=== PATIENT | female | born 1990 | race Caucasian/White ===

== ENCOUNTER 2017-06-05 14:30 | Inpatient (IN) ==
[2017-06-05 14:59] LABS: Basophils % 0.2 %; Eosinophils # 0.2 K/mcL (0.0-0.6); Eosinophils % 1.2 %; Hematocrit 40.5 % (35.3-44.9); Hemoglobin 13.1 g/dL (11.5-15.4); Immature Granulocytes % 0.5 % (0-4); Lymphocytes # 2.3 K/mcL (0.6-4.6); Mean Corpuscular HGB Conc 32.3 g/dL (31.6-35.5); Mean Corpuscular Hemoglobin 28.5 pg (28.0-33.3); Mean Corpuscular Volume 88.2 fL (83.0-100.0); Monocytes # 1.1 K/mcL (0.0-1.3); Monocytes % 8.2 %; Neutrophils # 9.3 K/mcL (1.6-8.9); Platelet Count 222 K/mcL (140-400); Red Blood Count 4.59 M/mcL (3.82-4.97); Red Cell Distribution Width 13.7 % (11.5-14.5); Segmented Neutrophils % 71.9 %
[2017-06-05 15:08] LABS: Creatinine,Urine 26 mg/dL
[2017-06-05 15:11] LABS: Protein/Creatinine Ratio,Urine < 0.27 mg/mg (0-0.20)
[2017-06-05 15:15] LABS: Alanine Aminotransferase 10 Units/L (0-55); Aspartate Amino Transferase 16 Units/L (5-34); BUN/Creatinine Ratio 8 (6-26); Blood Urea Nitrogen 6 mg/dL (7-20); Lactate Dehydrogenase 182 Units/L (159-327); Uric Acid 5.2 mg/dL (2.6-6.0); eGFR For African Americans > 60 (> 60); eGFR For Non-African Americans > 60 (> 60)
[2017-06-05] MEDS ORDERED: Famotidine 20 MG/2 ML VIAL IVP PRN (15:45)
[2017-06-05] MEDS ORDERED: Ondansetron 4 MG/2 ML VIAL IVP PRN (15:45)
[2017-06-05] MEDS ORDERED: Naloxone 0.4 MG/ML INJ IVP PRN (15:45)
[2017-06-05] MEDS ORDERED: miSOPROStol 100 MCG TABLET PO STA (15:47)
--- NOTE | 2017-06-05 15:55 | OB/GYN History & Physical ---
Date of Encounter: 06/05/17 Time of Encounter: 15:47 Assessment and Plan (1) PIH ( induced hypertension), antepartum Current visit: Yes Status: Acute induction of labor po cytotec nubain prn epidural if desired anticipate vaginal delivery (2) 37 weeks gestation of Current visit: Yes Status: Acute (3) Prior complicated by PIH, antepartum Current visit: Yes Status: Acute Qualifiers: Trimester: third trimester Qualified Code(s): O09.893 - Supervision of other high risk pregnancies, third trimester History of Present Illness Chief complaint: PIH eval HPI: Ms. Mary is a 26 year old female at 37.5 weeks gestation sent over from the OB office for PIH evaluation. She had 2 elevated BP in the OB office. Her protein/creatinine ratio is <0.27. The remainder of her PIH labs were normal. Her BP has normalized after lying down for approximately 45 minutes. She was induced at 37 weeks with her previous due to PIH. The case was discussed with Dr. Gonzalez, who stated to proceed with induction. Denies vaginal bleeding, loss of fluid, blurred vision, dizziness, headache, diarrhea, constipation, emesis. Good movement. Has had some nausea associate with GERD this . Labs: negative: GBS, Hep B, HIV, gonorrhea, chlamydia, syphilis, trichomonas, gardnerella, ana paula nonimmune: rubella immune: VZV Past Med Surg Social Fam HX - Past Medical History Medical history: other Psychiatric history: no psych history - Past Surgical History Surgical History: no surgical history - Social History Smoking Status: Never smoker Smokeless Tobacco Status: No Alcohol use: none Drug use: none - Family History Mother Living Status: Still Living Hx Family Cardiac Disorders: Yes (hypertension) Hx Family Respiratory Disorders: No Hx Family Cancer: No Hx Family GI Disorders: No Hx Family Genitourinary Disorders: No Hx Family Endocrine Disorder: No Hx Family Musculoskeletal Disorders: No Hx Family Neuromuscular Disorders: No Hx Family Neurologic Disorders: No Hx Family HEENT Disorders: No Hx Family Autoimmune Disorders: No Hx Family Reproductive Disorders: No Hx Family Psychosocial Disorders: No Hx Family Medical Disorders: Yes (brain anurysm) Obstetrical History - Pregnancies : 3 Para: 1 Term: 0 : 1 Ab's: 1 Livin Medications and Allergies Docusate [Colace] 100 mg PO BID 06/05/17 [History] Glycopyrrolate [Robinul] 2 mg PO BID 06/05/17 [History] Vit Calc,Iron,Folic [ Vitamins] 1 tab PO DAILY 06/05/17 [ History] Allergies No Known Allergies Allergy (Verified 06/05/17 14:42) Review of System OB - Constitutional Constitutional ROS IM: as per HPI Exam - Constitutional Constitutional: well developed, well nourished, no acute distress - HEENT HEENT: Normocephaly, Mucus Membranes Moist - Neck Neck exam: normal inspection - Lungs Respiratory exam: CTAB - Cardiovascular Cardiovascular exam: RRR, +S1, +S2 - Breasts Breast: bilateral: normal - Abdomen Abdomen: Present: bowel sounds normal, gravid, non tender - Extremities Extremities exam: pedal edema (1+) Results Result Diagrams: 06/05/17 14:45 06/05/17 14:45 Abnormal lab results WBC 13.0 K/mcL (4.3-11.1) H 06/05/17 14:45 Neutrophils # 9.3 K/mcL (1.6-8.9) H 06/05/17 14:45 BUN 6 mg/dL (7-20) L 06/05/17 14:45 Protein/Creatinin Ratio < 0.27 mg/mg (0-0.20) H 06/05/17 14:45 All other labs normal. - VTE Reasons for not Prescribing Prophylaxis: Treatment not Indicated - Low risk for VTE
[2017-06-05] MEDS: Ringers Solution, Lactated 1,000 ML IVC SCH (16:16)
--- NOTE | 2017-06-05 17:53 | Anesthesia Evaluation PreOp ---
Date of Encounter: 06/05/17 Time of Encounter: 17:51 - Past History Planned Operation: b[facility] Cardiac History: HTN (PIH) Pulmonary History: Denies Any Significant HX REAL ESTATE REP History: Denies Any Significant HX Other Medical History: GERD Anesthesia History: No Prior Anesthetic Complications, Past Anesthesia (Breast bx, BISMARK) : Yes Test: Positive Alcohol Use: none Drug use: none Medications and Allergies Docusate [Colace] 100 mg PO BID 06/05/17 [History] Glycopyrrolate [Robinul] 2 mg PO BID 06/05/17 [History] Vit Calc,Iron,Folic [ Vitamins] 1 tab PO DAILY 06/05/17 [ History] Allergies No Known Allergies Allergy (Verified 06/05/17 14:42) - Meds/Allergy Pre-op Review Medications Reviewed: Yes Allergies Reviewed: Yes Beta Blockers on Current Med List: No Anesthesia Results - Labs 06/05/17 14:45 06/05/17 14:45 Anesthesia Exam 135/90 77 16 FHT 133 Height: 5'5" Weight: 96 kg NPO (# of Hours): 2 Pain Scale: 1 Pain Scale Used: Numeric (1 - 10) - HEENT Pupil (Motor): Pupils equal Mallampati: II Teeth: Normal Oral Opening: Greater than 3 - REAL ESTATE REP LOC: Oriented REAL ESTATE REP Motor: Normal RUE, Normal LUE, Normal RLE, Normal LLE, Normal Face REAL ESTATE REP Sensory: Normal: RUE, LUE, RLE, LLE, Face - Cardiac Rhythm: Regular Murmur: None - Pulmonary Breath Sounds: bilateral Clear Respiratory Effort: Symmetrical Anesthesia Assess/Plan ASA Score: 2 Modified Colby Scale for Level of Consciousness: Cooperative, oriented, and tranquil Anesthetic Plan: Regional Autologous Blood: No Monitoring Plan: Standard Monitors Recovery Plan: Other (Risks discussed, questions answered, consented)
--- NOTE | 2017-06-05 19:25 | OB Labor Progress Note ---
Date of Encounter: 06/05/17 Time of Encounter: 19:23 Labor Progress Note - Subjective Subjective: Patient resting in bed. Discussed POC with patient. Patient denies any questions or concerns. - Cervix Cervix: 4/80/-1 - Heart Tones Heart Tones: 135 bpm moderate variability +15x15 accels no decels noted. - [place]: 2-3 min apart - Interventions Interventions: SVE, AROM moderate amount of clear fluid. Patient tolerated well. - Plan Plan: Continue labor management
[2017-06-05] MEDS ORDERED: Famotidine 20 MG/2 ML VIAL IVP ONE (20:03)
--- NOTE | 2017-06-05 21:12 | OB Labor Progress Note ---
Date of Encounter: 06/05/17 Time of Encounter: 21:10 Labor Progress Note - Subjective Subjective: Patient doing well. Discussed POC with patient. Patient denies any questions or concerns. - Cervix Cervix: 4/80/-1 - Heart Tones Heart Tones: 135 bpm moderate variability +15x15 accels variable noted. - [place]: 2-4 min apart - Interventions Interventions: SVE - Plan Plan: Will start pitocin for effective labor pattern.
[2017-06-05] MEDS ORDERED: Oxytocin 20 units/ LR 1000 mL 20 UNIT/1,000 ML BAG IVC SCH (21:30)
[2017-06-05] MEDS ORDERED: *HR* FentaNYL (PF) 100 MCG/2 ML VIAL EP ONE (22:41)
[2017-06-05] MEDS ORDERED: *HR* Ropivacaine/PF 0.2% 10 ML AMPUL EP ONE (22:43)
[2017-06-05] MEDS ORDERED: Epidural Premix (fent/bupiv) 110 ML EP SCH (22:45)
[2017-06-05] MEDS ORDERED: *HR* Ropivacaine/PF 0.2% 10 ML AMPUL ONE (22:47)
[2017-06-05] MEDS ORDERED: *HR* FentaNYL (PF) 100 MCG/2 ML VIAL ONE (22:47)
[2017-06-05] MEDS ORDERED: Epidural Premix (fent/bupiv) 110 ML EP ONE (22:47)
--- NOTE | 2017-06-05 23:59 | OB Labor Progress Note ---
Date of Encounter: 06/05/17 Time of Encounter: 23:57 Labor Progress Note - Subjective Subjective: Patient comfortable with epidural in place. Discussed POC with patient patient. Patient denies any questions or concerns. - Cervix Cervix: 5/80/-1 - Heart Tones Heart Tones: 130 bpm moderate variability +15x15 accels variables noted. - [place]: 2.5-3 min apart - Interventions Interventions: SVE, IUPC placed without difficulty. Patient tolerated well. - Plan Plan: continue labor management.
[2017-06-06] MEDS: Ringers Solution, Lactated 1,000 ML IVC SCH (02:36)
--- NOTE | 2017-06-06 04:34 | OB/GYN Procedure Note ---
Delivery - Delivery Date: 06/06/17 Provider: Trish Estrada Intrapartum events: none Delivery induction: AROM, oxytocin, misoprostol Delivery monitor: external FHT, external uterine, internal uterine Anesthesia: epidural Estimated Blood Loss: 200 - (s) Infant A Delivery Date: 06/06/17 Delivery Time: 03:54 Presentation: vertex Position: ALYCE Route of delivery: Gender: Male Viability: Viable Pounds: 7 Ounces: 10 Weight Gram: 3455 kg at 1 minute: 8 at 5 mins: 9 Shoulder Dystocia: not encountered Specimens collected: cord blood Placenta: spontaneous Cord: 3 umbilical vessels - Repair Episiotomy: none Laceration Description: Perineal - 1st Degree, Labial - Complications Delivery complications: none - Disposition Mom disposition: stable in LDR [place] disposition: stable in LDR - Comments Comments: Called to patient's room. Patient reports feeling pressure. Patient complete and +1 station. Patient was placed in stirrups and prepped for vaginal delivery. Under maternal effort patient spontaneously delivered a male infant. No nuchal cord, no shoulder dystocia or meconium was noted. Infant was placed on maternal abdomen. A first degree vaginal laceration was noted and repaired with 3-0 vicryl. A right labial laceration was noted and repaired with 4-0 vicryl. Cord was clamped and cut after pulsation ceased. was placed skin to skin. Apgars was 8 at 1 minute and 9 at 5 minutes. Both mother and infant stable in LDR for 2 hour recovery.
[2017-06-06] MEDS ORDERED: *HR* HYDROcodone/Acet 5/325 mg TABLET PO PRN (05:00)
[2017-06-06] MEDS ORDERED: Acetaminophen 325 MG TABLET PO PRN (05:00)
[2017-06-06] MEDS ORDERED: Measles/Mumps/Rubella Vacc 0.5 ML VIAL SQ PRN (05:00)
[2017-06-06] MEDS ORDERED: Ibuprofen 600 MG TABLET PO PRN (05:00)
[2017-06-06] MEDS ORDERED: Oxytocin 20 units/ LR 1000 mL 20 UNIT/1,000 ML BAG IVC SCH (05:00)
[2017-06-06] MEDS: Prenatal Vit/FA 1 EACH TABLET PO SCH (11:48)
[2017-06-07 08:25] VITALS: BP 129/86
--- NOTE | 2017-06-07 08:29 | Discharge Summary ---
Date of Encounter: 06/07/17 Time of Encounter: 08:25 - Discharge Diagnosis (1) Vaginal delivery Priority: Primary Status: Acute Comments: Meeting all milestone, going well, pain managed by po pain medication. Desires discharge. (2) PIH ( induced hypertension), antepartum Priority: Primary Status: Acute - Discharge Medications Home Medications: Glycopyrrolate [Robinul] 2 mg PO BID 06/05/17 [History] Acetaminophen [Tylenol] 650 mg PO Q6HR PRN tab 06/07/17 [Rx] Breast Pump [BREAST PUMP] 1 each .ROUTE AD #1 each 06/07/17 [Rx] Docusate [Colace] 100 mg PO BID 06/07/17 [Rx] Ibuprofen [Motrin] 600 mg PO Q6HR PRN tab 06/07/17 [Rx] Nitrofurantoin Monohyd/M-Cryst [Macrobid 100 mg Capsule] 100 mg PO BID #6 capsule 06/07/17 [Rx] Vit/FA 1 each PO DAILY tab 06/07/17 [Rx] Allergies/Adverse Reactions: Allergies No Known Allergies Allergy (Verified 06/05/17 14:42) Data Procedures and tests throughout hospitalization: Laboratory Tests 06/05/17 06/05/17 06/05/17 14:45 14:45 14:45 WBC 13.0 H RBC 4.59 Hgb 13.1 Hct 40.5 MCV 88.2 MCH 28.5 MCHC 32.3 RDW 13.7 Plt Count 222 MPV 10.0 Immature Gran % 0.5 Seg Neutrophils % 71.9 Lymphocytes % 18.0 Monocytes % 8.2 Eosinophils % 1.2 Basophils % 0.2 Neutrophils # 9.3 H Lymphocytes # 2.3 Monocytes # 1.1 Eosinophils # 0.2 Basophils # 0.0 BUN 6 L Creatinine 0.75 Est GFR ( Amer) > 60 Est GFR (Non-Af Amer) > 60 BUN/Creatinine Ratio 8 Uric Acid 5.2 AST 16 ALT 10 Lactate Dehydrogenase 182 Urine Creatinine 26 Protein/Creatinin Ratio < 0.27 H Urine Total Protein < 7 Date of admission: 06/05/17 14:30 Primary care physician: Darnell Lozano Consults: 06/06/17 05:00 Consult to Roto Rooter Operator [CONS] Routine Comment: Vaginal delivery, consult needed Discharging clinician: Yuridia Marx Anticipated date of discharge: 06/07/17 - Patient Status Disposition: Home, Self-Care Condition: Good Functional capacity at discharge: independent ambulation Overall status at discharge: patient is back to baseline - Discharge Instructions Instructions: Chronic Hypertension (DC) Follow Up With: Darnell Lozano DO [Primary Care Provider] - Trish Estrada CNM [Non-Partnered Physician] - - Diet and Activity Activity: resume usual activities as tolerated Diet: regular diet Hospital Course Reason for admission: induction of labor Delivery: Episiotomy: none Laceration: 1st degree Other procedures: none complications: none Discharge diagnosis: IUP at term delivered [place] baby: male Hospital course: Delivery - Delivery Date: 06/06/17 Provider: Trish Estrada Intrapartum events: none Delivery induction: AROM, oxytocin, misoprostol Delivery monitor: external FHT, external uterine, internal uterine Anesthesia: epidural Estimated Blood Loss: 200 - (s) A Delivery Date: 06/06/17 Delivery Time: 03:54 Presentation: vertex Position: ALYCE Route of delivery: Gender: Male Viability: Viable Pounds: 7 Ounces: 10 Weight Gram: 3455 kg at 1 minute: 8 at 5 mins: 9 Shoulder Dystocia: not encountered Specimens collected: cord blood Placenta: spontaneous Cord: 3 umbilical vessels - Repair Episiotomy: none Laceration Description: Perineal - 1st Degree, Labial - Complications Delivery complications: none - Disposition Mom disposition: stable in PP and appropriate for discharge Time Attestation: Total time spent providing and/or coordinating discharge services: Exam - Constitutional Vitals: Temp Pulse Resp BP Pulse Ox 97.7 F 76 12 129/86 97 06/07/17 08:24 06/07/17 08:24 06/07/17 08:24 06/07/17 08:24 06/07/17 08:24 General appearance IM: A&O X 3 - Respiratory Respiratory exam: Present: CTAB - Cardiovascular Cardiovascular exam IM: Present: RRR - GI/Abdominal GI/Abdominal exam IM: soft - Uterus Position: At Umbilicus, Midline - Extremities Exam Extremities exam IM: Present: normal capillary refill, normal inspection - Neurological Exam Neurological exam: normal gait, oriented X3 - Psychiatric Additional comments: reports good mood.
[2017-06-07] MEDS: Prenatal Vit/FA 1 EACH TABLET PO SCH (09:08)
== END 2017-06-07 14:21 | disposition home or self-care (01) | DRG 775 ==
LOC: 1NENULAB → OBSVTOIN 14:30 → 1NENUOBS 06-06 07:02
PROVIDERS: ADMIT Obstetrics & Gynecology; ATTEND Obstetrics & Gynecology